=== PATIENT | male | born 1965 | race Caucasian/White ===

== ENCOUNTER 2020-08-20 16:31 | Emergency (ER) | payer OTHER ==
[2020-08-20] MEDS ORDERED: Acetaminophen 500 MG TAB ONE (16:47)
[2020-08-20 17:33] LABS: Bilirubin Negative (Negative); Blood, Urine Negative (Negative); Clarity Clear (Clear); Glucose, Urine (Dipstick) Negative (Negative); Ketone, Urine Negative (Negative); Leukocyte Negative (Negative); Nitrite Negative (Negative); Protein, Urine (Dipstick) Negative (Neg-Trace); Specific Gravity, Urine 1.029 (1.005-1.030); Urobilinogen 0.2 mg/dL (Less than 2)
[2020-08-21 14:53] LABS: SARS-CoV-2 MS2 Positive; SARS-CoV-2 N Gene Negative; SARS-CoV-2 S Gene Negative; SARS-CoV-2 by NAA Not Detected (NotDetected); SARS-CoV-2 orf1ab Negative
== END 2020-08-20 18:20 | disposition home or self-care (01) ==
LOC: NAV ERS 16:31
DX: R30.0 Dysuria (principal); Z20.828 Contact with and (suspected) exposure to other viral communicable diseases; R50.9 Fever, unspecified; R00.0 Tachycardia, unspecified; I10 Essential (primary) hypertension
CPT/HCPCS: 81003; 87086; 87635; 99283; U0003